=== PATIENT | female | born 1965 | race Caucasian/White ===

== ENCOUNTER → 2017-01-30 | Outpatient (CLI) | payer BC ==
--- NOTE | 2017-01-30 14:44 | REPMRS ---
Patient History The patient states she had a clinical breast exam in 01/2017. Patient is postmenopausal. No known family history of cancer. Taking unspecified hormones for 13 years. Digital Woman Screen Mammo: January 30, 2017 - Exam #: [id number] Bilateral CC and MLO view(s) were taken. Technologist: Beth Delgado Technologist Prior study comparison: October 07, 2014, digital woman screen mammo performed at [facility]. September 09, 2013, right breast digital mammo diagnostic unilateral, performed at [facility]. FINDINGS: There are scattered fibroglandular densities. There has been no change in the appearance of the mammogram from the prior studies. There is a mild amount of residual fibroglandular tissue which is fairly symmetric. There is no interval development of dominant mass, architectural distortion, or clustered microcalcification suggestive of malignancy. ASSESSMENT: BI-RADS/ACR category 1 mammogram. Negative. Recommendation Routine screening mammogram in 1 year (for women over age 40). This mammogram was interpreted with the aid of an FDA-approved computer-aided dectection system. Electronically Signed By: Sergio Moya MD 01/30/17 [id number]
== END ==
LOC: M WHC 13:58
PROVIDERS: ATTEND Nurse Practitioner Family
DX: Z12.31 Encounter for screening mammogram for malignant neoplasm of breast (principal); Z78.0 Asymptomatic menopausal state; Z92.29 Personal history of other drug therapy

== ENCOUNTER → 2018-05-13 | Outpatient (CLI) | payer BC | LOC: M WHC 09:03 | DX: Z01.419 Encounter for gynecological examination (general) (routine) without abnormal findings (principal); Z12.31 Encounter for screening mammogram for malignant neoplasm of breast (principal); Z12.4 Encounter for screening for malignant neoplasm of cervix; Z12.12 Encounter for screening for malignant neoplasm of rectum; Z79.890 Hormone replacement therapy; Z12.72 Encounter for screening for malignant neoplasm of vagina | CPT/HCPCS: G0123 ==

== ENCOUNTER → 2018-05-13 | Outpatient (REF) | payer BC | LOC: M SFHCWAGY 09:03 | DX: Z12.4 Encounter for screening for malignant neoplasm of cervix (principal) ==

== ENCOUNTER → 2019-05-08 | Outpatient (REF) | payer BC | LOC: M SFHCLERA 10:40 | PROVIDERS: ATTEND Family Medicine | DX: Z13.220 Encounter for screening for lipoid disorders (principal) ==

== ENCOUNTER → 2019-05-09 | Outpatient (REF) | payer BC ==
[2019-05-09 12:15] LABS: CHOLESTEROL RISK RATIO 2.98 (<5)
== END ==
LOC: M SFHCLERA 08:29
PROVIDERS: ATTEND Family Medicine
DX: Z13.220 Encounter for screening for lipoid disorders (principal)

== ENCOUNTER → 2019-07-22 | Outpatient (CLI) | payer BC ==
--- NOTE | 2019-07-22 16:59 | REPMRS ---
Patient History The patient states she had a clinical breast exam in 07/2019. Patient is postmenopausal. No known family history of cancer. Took unspecified hormones for 14 years. 3D TOMOSYNTHESIS WAS PERFORMED. [facility] lifetime risk for breast cancer is 5.6%. Digital Woman Screen Mammo: July 22, 2019 - Exam #: [id number] Bilateral CC and MLO view(s) were taken. Technologist: Sherin Lantigua, Technologist Prior study comparison: May 13, 2018, bilateral digital woman screen mammo performed at [facility]. January 30, 2017, digital woman screen mammo performed at [facility]. FINDINGS: There are scattered fibroglandular densities. There has been no change in the appearance of the mammogram from the prior studies. There is a mild amount of residual fibroglandular tissue which is fairly symmetric. There is no interval development of dominant mass, architectural distortion, or clustered microcalcification suggestive of malignancy. Assessment: BI-RADS/ACR category 1 mammogram. Negative Mammogram. Recommendation Routine screening mammogram in 1 year (for women over age 40). This mammogram was interpreted with the aid of an FDA-approved computer-aided dectection system. Electronically Signed By: Sergio Moya MD 07/22/19 [id number]
== END ==
LOC: M WHC 14:44
PROVIDERS: ATTEND Nurse Practitioner Family
DX: Z12.31 Encounter for screening mammogram for malignant neoplasm of breast (principal); Z78.0 Asymptomatic menopausal state

== ENCOUNTER → 2020-11-10 | Outpatient (CLI) | payer BC ==
--- NOTE | 2020-11-10 09:22 | REPMRS ---
Patient History The patient states she had a clinical breast exam in 10/2020. Patient is postmenopausal. No known family history of cancer. Taking estrogen for 1 year. Took unspecified hormones for 14 years. Digital Woman Screen Mammo: November 10, 2020 - Exam #: [id number] Bilateral CC and MLO view(s) were taken. Technologist: Sherin Lantigua, Technologist Prior study comparison: July 22, 2019, bilateral digital woman screen mammo performed at [facility]. May 13, 2018, bilateral digital woman screen mammo performed at [facility]. January 30, 2017, digital woman screen mammo performed at [facility]. FINDINGS: The breast tissue is almost entirely fat. The Volpara volumetric breast density category is: A. There has been no change in the appearance of the mammogram from the prior studies. There is no interval development of dominant mass, architectural distortion, or grouped microcalcification typical of malignancy. 3-D tomosynthesis shows no additional findings. Assessment: BI-RADS/ACR category 1 mammogram. Negative Mammogram. Recommendation Routine screening mammogram of both breasts in 1 year (for women over age 40). This patient's [facility] Lifetime Breast Cancer RIsk is estimated at 5.5 %. This mammogram was interpreted with the aid of an FDA-approved computer-aided dectection system. Electronically Signed By: Christoph Banks MD 11/10/20 0922
== END ==
LOC: M WHC 08:00
PROVIDERS: ATTEND Nurse Practitioner Family
DX: Z12.31 Encounter for screening mammogram for malignant neoplasm of breast (principal)

== ENCOUNTER → 2020-12-20 | Outpatient (CLI) | payer BC ==
--- NOTE | 2020-12-20 18:53 | REP ---
INDICATION: LT ANKLE INTERNAL DERANGMENT. Pain and swelling, concern for partial tendon rupture. No known injury. Lateral pain and swelling. COMPARISON: Comparison radiographs 27 September 2020.. TECHNIQUE: Axial, coronal, and sagittal imaging planes utilized. T1 and T2 weighted scanning is included with without fat saturation in the usual fashion. FINDINGS: MR images demonstrate periosteal reaction, marrow edema signal, and cortical and medullary bony disruption of the distal fibular diametaphyseal region indicating a ununited healing fracture. Normally aligned. This is not apparent radiographically on the September 17, 2020 study. Repeat radiographs are recommended. Cortical and medullary bone signal intensity is normal in the distal tibia and hindfoot and midfoot tarsal bones. There is no evidence of tarsal coalition. Achilles tendon is unremarkable. Plantar fascia appear smooth. No joint effusion is seen. No cyst or mass is observed. The tibial plafond and talar dome a are intact. The deltoid ligamentous complex is unremarkable. Calcaneofibular ligament is unremarkable. The anterior talofibular ligament appears to be intact as does the anterior inferior tibiofibular and posterior inferior tibiofibular and posterior talofibular ligaments. Tibialis posterior, flexor digitorum, flexor hallucis longus tendons are intact medially. The peroneus tendons appear intact. There is some soft tissue swelling and edema adjacent to the healing fracture in the distal fibula. IMPRESSION: Recent nonunited healing fracture distal fibular diametaphyseal region with periosteal reaction and surrounding edema. No other evidence of internal derangement seen. Recommend repeat radiographs of the left ankle. <Electronically signed by Christoph Banks > 12/20/20 [id number]
== END ==
LOC: M RAD 15:01
PROVIDERS: ATTEND Internal Medicine
DX: S89.30 Unspecified physeal fracture of lower end of fibula (principal)

== ENCOUNTER → 2020-12-24 | Outpatient (CLI) | payer BC ==
--- NOTE | 2020-12-24 10:56 | DEXAMM ---
INDICATION: Z78.0 ASYMPTOMATIC MENOPAUSAL STATE. COMPARISON: 10/14/2010 and 08/12/2008. TECHNIQUE: Bone density was measured using dual-energy x-ray absorptiometry (DEXA). FINDINGS: AP SPINE L1-L4 BMD 1.140 g/cm2 Young Adult T-Score -0.4 Age Matched Z-Score 0.4. LT FEMUR, TOTAL BMD 0.887 g/cm2 Young Adult T-Score -1.0 Age Matched Z-Score -0.3. LT NECK BMD 0.835 g/cm2 Young Adult T-Score -1.5 Age Matched Z-Score -0.4. RT FEMUR, TOTAL BMD 0.855 g/cm2 Young Adult T-Score -1.2 Age Matched Z-Score -0.5. RT NECK BMD 0.799 g/cm2 Young Adult T-Score -1.7 Age Matched Z-Score -0.7. IMPRESSION: There is normal bone density of the spine. There is low bone density of the left hip. There is low bone density of the right hip. The density of the spine has increased 7.5% since the initial exam on 08/12/2008. The density of the spine increased 6.2% since most recent exam on 10/14/2010. The density of the left hip has increased 13.6% since initial exam on 08/12/2008. The density of the left hip has increased 12.4% since most recent exam on 10/14/2010. The density of the right hip has increased 6.7% since the initial exam on 08/12/2008. The density of the right hip has increased 7.8% since the most recent exam on 10/14/2010. FOLLOW-UP: Recommendation for the next bone density exam: 2 years. <Electronically signed by Sergio Moya > 12/24/20 [id number]
== END ==
LOC: M WHC 09:52
PROVIDERS: ATTEND Internal Medicine
DX: Z78.0 Asymptomatic menopausal state (principal)

== ENCOUNTER → 2021-01-24 | Outpatient (CLI) | payer BC ==
[2021-01-24 18:08] LABS: BLOOD UREA NITROGEN 19 MG/DL (7-18); CREATININE FOR GFR 0.62 MG/DL (0.55-1.30); GLOMERULAR FILTRATION RATE > 60.0 (>51)
== END ==
LOC: M LAB 16:48
PROVIDERS: ATTEND Physician Assistant
DX: S82.65XA Nondisplaced fracture of lateral malleolus of left fibula, initial encounter for closed fracture (principal)

== ENCOUNTER → 2021-01-31 | Outpatient (CLI) | payer BC ==
[~2021-01-31] MED LIST: PROHANCE 279.3MG/ML 15ML VIAL As Ordered ONE
--- NOTE | 2021-01-31 16:46 | REP ---
INDICATION: NONDISP FX OF LATERAL MALLEOLUS OF LEFT FIBULA, INIT. COMPARISON: 12/20/2020. TECHNIQUE: Multiple sequences are obtained in the axial, coronal and sagittal planes prior to and following the intravenous administration of 14 mL ProHance. FINDINGS: The Achilles, anterior tibial, posterior tibial, flexor hallucis longus, flexor digitorum longus and peroneal tendons are all intact without significant tenosynovitis. The anterior and posterior talofibular, calcaneofibular and deltoid ligaments appear intact. Plantar tendon appears intact. There is no plantar fasciitis. Sinus tarsi appears unremarkable. No ganglion cyst is seen. There is normal amount of joint fluid. The cartilaginous surfaces are smooth. No osteochondral defect is seen at the tibiotalar joint. Again noted is a healing fracture of the distal fibula. Healing callus formation is noted. There is mild marrow edema in the fibula both proximal and distal to the site of the fracture. This edema has decreased since the prior study. Mild adjacent soft tissue edema has also improved. There is mild expected enhancement at the healing fracture site. No other significant enhancement is seen in the region of the left ankle. IMPRESSION: Healing fracture distal fibula with decreased associated marrow edema at the site of the fracture and decreased adjacent soft tissue edema. <Electronically signed by Sergio Moya > 01/31/21 [id number]
== END ==
LOC: M RAD 14:02
PROVIDERS: ATTEND Physician Assistant
DX: S82.65XD Nondisplaced fracture of lateral malleolus of left fibula, subsequent encounter for closed fracture with routine healing (principal); X58.XXXD Exposure to other specified factors, subsequent encounter
CPT/HCPCS: 73723; A9576

== ENCOUNTER → 2021-03-03 | Outpatient (CLI) | payer BC ==
--- NOTE | 2021-03-03 14:54 | REP ---
INDICATION: NON DISPLACED FX LATERAL MALIOUS LEFT FIBULA. COMPARISON: Comparison is made with ankle radiographs from December 24, 2020 and September 27, 2020. Comparison MRI study January 31, 2021 and December 20, 2020.. TECHNIQUE: 21.4 mCi of technetium 99 M MDP is injected and 3 phase imaging of the feet and ankles is acquired. FINDINGS: Anterior and posterior flow study shows a area of focal hyperemia at the lateral aspect of the ankle on the left. Corresponds with the distal fibular fracture site. On blood pool images there is moderate obliquely linear increased uptake across the distal fibula in the lateral aspect of the left ankle. Delayed scan images show intensely increased uptake at this site again in an obliquely linear configuration. IMPRESSION: Findings consistent with recent fracture distal fibular diaphysis. No other focal abnormal uptake is seen in the lower extremities. <Electronically signed by Christoph Banks > 03/03/21 [id number]
== END ==
LOC: M RAD 10:27
PROVIDERS: ATTEND Physician Assistant
DX: S82.65XD Nondisplaced fracture of lateral malleolus of left fibula, subsequent encounter for closed fracture with routine healing (principal); W18.30XD Fall on same level, unspecified, subsequent encounter; Y92.009 Unspecified place in unspecified non-institutional (private) residence as the place of occurrence of the external cause

== ENCOUNTER → 2023-07-12 | Outpatient (CLI) | payer BC | LOC: M SOG 08:24 | PROVIDERS: ATTEND Physician Assistant | DX: M25.532 Pain in left wrist (principal); M79.642 Pain in left hand ==